=== PATIENT | male | born 1980 | race Caucasian/White ===

== ENCOUNTER 2018-10-13 11:24 | Emergency (ER) | payer SELFPAY ==
[2018-10-13 11:42] VITALS: BP 127/72
--- NOTE | 2018-10-13 11:59 | Emergency Department Report ---
HPI - General Chief Complaint: Laceration/Recheck/Suture Time Seen by Provider: 10/13/18 11:55 - HPI HPI: 37-year-old male presents to the emergency department with a laceration to the left palm that occurred just prior to presentation with a sharp knife, box finisher, accidentally. He has a tingling sensation to the left thumb and index finger but otherwise has full range of motion of all the fingers and no actual numbness. He is right-hand dominant. He is up-to-date with his tetanus vaccination. ED Past Medical Hx - Past Medical History Previous Medical History?: Yes Hx Kidney Stones: Yes - Surgical History Past Surgical History?: Yes Additional Surgical History: BRAIN SURGERY 2010(shunt) - Social History Smoking Status: Never Smoker Substance Use Type: None - Medications Home Medications: Home Medications Medication Instructions Recorded Confirmed Last Taken Type Ciprofloxacin HCl [Ciprofloxacin 500 mg PO Q12H #10 tab 08/03/15 Unknown Rx TAB] HYDROcodone/APAP 5-325 [[place] 1 each PO Q6HR PRN #14 tablet 08/03/15 Unknown Rx 5/325] Ibuprofen [Motrin] 600 mg PO Q8H PRN #20 tablet 08/03/15 Unknown Rx Tamsulosin [Flomax] 0.4 mg PO QDAY #5 cap 08/03/15 Unknown Rx HYDROcodone/APAP 5-325 [[place] 1 each PO Q6HR PRN #10 tablet 10/13/18 Unknown Rx 5/325] Sulfamethoxazole/Trimethoprim 1 each PO BID #10 tablet 10/13/18 Unknown Rx [Bactrim DS TAB] ED Review of Systems ROS: Stated complaint: LEFT HAND LACERATION Other details as noted in HPI Comment: All other systems reviewed and negative Constitutional: denies: chills, fever Eyes: denies: eye pain, vision change ENT: denies: ear pain, throat pain Respiratory: denies: cough, shortness of breath Cardiovascular: denies: chest pain, palpitations Gastrointestinal: denies: abdominal pain, vomiting Genitourinary: denies: dysuria, discharge Musculoskeletal: denies: back pain, joint swelling Skin: other (laceration). denies: rash Neurological: denies: headache, weakness Physical Exam - Physical Exam Vital Signs: Vital Signs 10/13/18 11:36 Temperature 98.2 F Pulse Rate 66 Respiratory 18 Rate Blood Pressure 127/72 O2 Sat by Pulse 99 Oximetry Physical Exam: GENERAL: The patient is well-developed well-nourished. HEENT: Normocephalic. Atraumatic. Patient has moist mucous membranes. EYES: Extraocular motions are intact. NECK: Supple. Trachea is midline. CHEST/LUNGS: Clear to auscultation. There is no respiratory distress noted. HEART/CARDIOVASCULAR: Regular. There is no tachycardia. There is no obvious murmur. ABDOMEN: There is no abdominal distention. SKIN: Skin is warm and dry. The patient has a left palmar laceration to the mid palm that is about 1 inch in length. It is linear, and goes down to some s ubcutaneous fat. There is oozing of blood. NEURO: The patient is awake, alert, and oriented. The patient is cooperative. The patient has normal speech. MUSCULOSKELETAL: There is tenderness to palpation to the left palm with the patient has a laceration. Fingers of the left hand have a capillary refill less than 2 seconds. +2 over 4 radial pulse to the affected left wrist. ED Course Vital Signs 10/13/18 11:36 Temperature 98.2 F Pulse Rate 66 Respiratory 18 Rate Blood Pressure 127/72 O2 Sat by Pulse 99 Oximetry - Laceration /Wound Repair Left Hand Wound Location: upper extremity (left palm) Irrigated w/ Saline (ccs): 50 Anesthesia: 1% Lidocaine Volume Anesthetic (ccs): 6 (2% lidocaine without epinephrine) Wound Repaired With: sutures Suture Size/Type: 5:0, 4:0 Number of Sutures: 8 (6 of 4.0, 2 of 5.0) Layer Closure?: No Sterile Dressing Applied?: Yes ED Medical Decision Making - Medical Decision Making Patient presents to the emergency department with a left palmar laceration. The patient is neurovascularly intact with good capillary refill to the distal fingers and a radial pulse of +2 over 4. There was a reported to triage that there was some type of heavy or pulsatile bleeding. A blood pressure cuff was inflated and used for some proximal pressure above the hand and wrist. A pressure dressing was removed and there was no pulsatile bleeding but there was some oozing of blood. A total of 6 simple interrupted sutures of 4. 0 Ethilon and 2 more simple interrupted sutures of 5. 0 Ethilon were used to close/approximate the laceration. At this point there was very little oozing of blood. The hand was reexamined and he still has good capillary refill and a palpable radial pulse and appears neurovascularly intact. The patient does complain of some paresthesia like sensation to the distal thumb and index finger. He has full range of motion of all the fingers and hand and wrist. He was placed in a pressure dressing and a splint. He was placed on antibiotics and given some pain medication. He was given a referral for an orthopedist. He is up-to-date with his tetanus vaccination. He will return to the ER with any worsening of symptoms or any acute distress. The area was examined and there did not appear to be any foreign body seen. He cut himself with a box finisher while trying to open a cardboard box. There is low suspicion of a foreign body and fracture and I did not feel that imaging was necessary at this time - Differential Diagnosis laceration, tendon laceration, puncture wound Critical care attestation.: If time is entered above; I have spent that time in minutes in the direct care of this critically ill patient, excluding procedure time. ED Disposition Clinical Impression: Laceration of left palm Qualifiers: Encounter type: initial encounter Qualified Code(s): S61.412A - Laceration without foreign body of left hand, initial encounter Disposition: - TO HOME OR SELFCARE Is pt being admited?: No Condition: Stable Instructions: Suture Care (ED), Laceration (ED) Additional Instructions: Please follow up with a primary care physician and/or orthopedist in the next few days. The area should be cleaned with soap and water and then be kept dry. Take the antibiotics as prescribed. The sutures will need to be removed in 7 days. Make sure you are seen sooner with any signs or symptoms of infection such as surrounding redness, increased pain, discharge or pus. Return to the emergency Department with any worsening of your symptoms or any acute distress. Prescriptions: HYDROcodone/APAP 5-325 [[place] 5/325] 1 each PO Q6HR PRN #10 tablet PRN Reason: Pain Sulfamethoxazole/Trimethoprim [Bactrim DS TAB] 1 each PO BID #10 tablet Referrals: FABIAN CHRISTIAN MD [Staff Physician] - 3-5 Days Forms: Work/School Release Form(ED) Time of Disposition: 13:08
[2018-10-13] MEDS ORDERED: XYLOCAINE 2% INFILTRATI ONE (12:00)
== END 2018-10-13 13:17 | disposition home or self-care (01) ==
LOC: ED 11:24
DX: S61.412A Laceration without foreign body of left hand, initial encounter (principal); Z87.442 Personal history of urinary calculi; W26.0XXA Contact with knife, initial encounter; Y93.89 Activity, other specified; Y92.89 Other specified places as the place of occurrence of the external cause; Y99.8 Other external cause status

== ENCOUNTER 2018-10-24 18:09 | Emergency (ER) | payer SELFPAY ==
[2018-10-24 19:09] VITALS: BP 125/73
--- NOTE | 2018-10-24 19:37 | Emergency Department Report ---
- General Chief Complaint: Laceration/Recheck/Suture Stated Complaint: CUT HAND/PAIN Time Seen by Provider: 10/24/18 19:08 Source: patient Mode of arrival: Ambulatory Limitations: No Limitations - History of Present Illness Initial Comments: 37 y/o male presents to hospital for wound evaluation . was cut in hand 1 week ago and had sutures to palm of hand and now has swelling to hand and reports discharge. uses neosporin daily. c/o of throbbing pain. no fever or chills Extremity Location: Right: Hand Place: home Context: accidental Associated Symptoms: pain - Related Data Previous Rx's Medication Instructions Recorded Last Taken Type Ciprofloxacin HCl [Ciprofloxacin 500 mg PO Q12H #10 tab 08/03/15 Unknown Rx TAB] HYDROcodone/APAP 5-325 [[place] 1 each PO Q6HR PRN #14 tablet 08/03/15 Unknown Rx 5/325] Ibuprofen [Motrin] 600 mg PO Q8H PRN #20 tablet 08/03/15 Unknown Rx Tamsulosin [Flomax] 0.4 mg PO QDAY #5 cap 08/03/15 Unknown Rx HYDROcodone/APAP 5-325 [[place] 1 each PO Q6HR PRN #10 tablet 10/13/18 Unknown Rx 5/325] Sulfamethoxazole/Trimethoprim 1 each PO BID #14 tablet 10/24/18 Unknown Rx [Bactrim DS TAB] Allergies Allergy/AdvReac Type Severity Reaction Status Date / Time No Known Allergies Allergy Verified 10/13/18 11:35 ED Review of Systems ROS: Stated complaint: CUT HAND/PAIN Other details as noted in HPI Constitutional: denies: chills, fever Eyes: denies: eye pain, eye discharge, vision change ENT: denies: ear pain, throat pain Respiratory: denies: cough, shortness of breath, wheezing Cardiovascular: denies: chest pain, palpitations Endocrine: no symptoms reported Gastrointestinal: denies: abdominal pain, nausea, diarrhea Genitourinary: denies: urgency, dysuria Musculoskeletal: denies: back pain, joint swelling, arthralgia Skin: denies: rash, lesions Neurological: denies: headache, weakness, paresthesias Psychiatric: denies: anxiety, depression Hematological/Lymphatic: denies: easy bleeding, easy bruising ED Past Medical Hx - Past Medical History Hx Kidney Stones: Yes - Surgical History Additional Surgical History: BRAIN SURGERY 2010(shunt) - Social History Smoking Status: Never Smoker Substance Use Type: None - Medications Home Medications: Home Medications Medication Instructions Recorded Confirmed Last Taken Type Ciprofloxacin HCl [Ciprofloxacin 500 mg PO Q12H #10 tab 08/03/15 Unknown Rx TAB] HYDROcodone/APAP 5-325 [[place] 1 each PO Q6HR PRN #14 tablet 08/03/15 Unknown Rx 5/325] Ibuprofen [Motrin] 600 mg PO Q8H PRN #20 tablet 08/03/15 Unknown Rx Tamsulosin [Flomax] 0.4 mg PO QDAY #5 cap 08/03/15 Unknown Rx HYDROcodone/APAP 5-325 [[place] 1 each PO Q6HR PRN #10 tablet 10/13/18 Unknown Rx 5/325] Sulfamethoxazole/Trimethoprim 1 each PO BID #14 tablet 10/24/18 Unknown Rx [Bactrim DS TAB] ED Physical Exam - General Limitations: No Limitations General appearance: alert, in no apparent distress - Head Head exam: Present: atraumatic, normocephalic - Eye Eye exam: Present: normal appearance, PERRL, EOMI Pupils: Present: normal accommodation - ENT ENT exam: Present: normal exam, mucous membranes moist - Neck Neck exam: Present: normal inspection, tenderness, full ROM. Absent: lymphadenopathy, thyromegaly - Respiratory Respiratory exam: Present: normal lung sounds bilaterally. Absent: respiratory distress, wheezes, rales, chest wall tenderness, accessory muscle use - Cardiovascular Cardiovascular Exam: Present: regular rate, normal rhythm. Absent: bradycardia, tachycardia, systolic murmur, diastolic murmur, rubs, gallop - GI/Abdominal GI/Abdominal exam: Present: soft, normal bowel sounds. Absent: tenderness, guarding, rebound, hyperactive bowel sounds, hypoactive bowel sounds, organo megaly, mass - Rectal Rectal exam: Present: deferred - Extremities Exam Extremities exam: Present: normal inspection, full ROM, tenderness, normal capillary refill - Expanded Upper Extremity Exam Left General: Present: other Shoulder Exam: Present: normal inspection Upper Arm exam: Present: normal inspection Elbow exam: Present: normal inspection Forearm Wrist exam: Present: normal inspection Hand L/R Front: 1 - Positive: laceration (sutures in place. mild swelling and pain noted. no cellulitis. no discharge. no lymphangitis) - Back Exam Back exam: Present: normal inspection, full ROM. Absent: CVA tenderness (R), CVA tenderness (L) - Neurological Exam Neurological exam: Present: alert, oriented X3, CN II-XII intact - Psychiatric Psychiatric exam: Present: normal affect, normal mood - Skin Skin exam: Present: warm, dry, intact, normal color. Absent: rash ED Course Vital Signs 10/24/18 19:07 Temperature 98 F Pulse Rate 60 Respiratory 16 Rate Blood Pressure 125/73 O2 Sat by Pulse 98 Oximetry Critical care attestation.: If time is entered above; I have spent that time in minutes in the direct care of this critically ill patient, excluding procedure time. ED Disposition Clinical Impression: Encounter for re-check of laceration wound Disposition: DC-01 TO HOME OR SELFCARE Is pt being admited?: No Does the pt Need Aspirin: No Condition: Stable Instructions: Suture Care (ED) Prescriptions: Sulfamethoxazole/Trimethoprim [Bactrim DS TAB] 1 each PO BID #14 tablet Referrals: [facility] [Provider Group] - 3-5 Days Print Language: MICRONESIAN
== END 2018-10-24 19:45 | disposition home or self-care (01) ==
LOC: ED 18:09
DX: M79.641 Pain in right hand (principal); R22.31 Localized swelling, mass and lump, right upper limb; Z48.00 Encounter for change or removal of nonsurgical wound dressing
CPT/HCPCS: 99282